=== PATIENT | female | born 1945 | race Caucasian/White ===

== ENCOUNTER → 2017-03-12 | Outpatient (CLI) | payer MEDICARE ==
[~2017-03-12] VITALS: Ht 170.2 cm; Wt 86.6 kg
[~2017-03-12] MED LIST: ASPI-110 PO; CHLORHEXIDINE GLUCONATE 2 % 1 PACK (2 CLOTHS) TOPICAL PRN; CLAR10CA3 PO; FLON0.053; INSULIN HUMAN REGULAR 1,000 UNITS/10 ML VIAL SQ PRN; LACTATED RINGER'S 1000 ML IV PRN; LISI10TA3 PO; LORA10TA7 PO; META48.53 PO; METF850T PO; METO5TAB PO; METOPROLOL TARTRATE 25 MG TAB PO PRN; ONABOTULINUMTOXINA INJ 100 UNITS/VIAL ONE; POVIDONE IODINE 5% (ANTISEPSIS KIT) 4 APPLICATIONS EACH NARE PRN; PROPOFOL 200 MG/20 ML AMP IV ONE; SIMV20TA PO; SODIUM CHLORID 0.9% 500 ML IV PRN; ZANT150T2 PO; ZANTTAB9 PO
[2017-03-12 08:51] VITALS: BP 124/66; PULSE 87; RESP 20; TEMP 98.7; O2SAT 99
--- NOTE | 2017-03-12 10:19 | EKG ---
Date Performed: 03/12/2017 Time Performed: 08:36:40 PTAGE: 71 years EKG: Sinus rhythm NORMAL ECG PREVIOUS TRACING : 06/28/2008 15.15 DOCTOR: Elvis Do Interpretating Date/Time 03/12/2017 10:17:10
[2017-03-12 11:19] VITALS: TEMP 97.8
[2017-03-12 11:35] VITALS: BP 106/56; PULSE 80; RESP 18; O2SAT 99
--- NOTE | 2017-03-12 12:47 | MR ---
cc: HARIKA VOSS M.D. DATE: 03/12/2017 PROCEDURE PERFORMED Esophagogastroduodenoscopy with esophageal dilatation over guidewire. INDICATION Dysphagia and retained Wadsworth device. PROCEDURE After informed consent was obtained, the patient was placed in the left side down position. She was sedated by the anesthesia service. After adequate sedation had been achieved the Pentex video gastroscope was inserted in the oropharynx and advanced down to the esophagus into the stomach, then into the descending duodenum. It was then slowly withdrawn examining the mucosal surfaces carefully. A retroflex examination was performed and the fundus and cardia demonstrating a hiatal hernia. The scope was then straightened and pulled through the distal esophagus. It was examined carefully and observed for a few seconds as it opened spontaneously. There was no evidence of achalasia. The scope was then withdrawn back to the proximal esophagus. It was then reinserted to the gastric antrum. A decision was made to perform esophageal dilatation. Guidewire was left in place in the gastric antrum, as the scope was slowly withdrawn over the guidewire, an 18 mm Savory dilator was passed down through the esophagus and down into the stomach. It was then removed along with the guidewire. A re-look examination was then performed, advancing down through the esophagus into the stomach, a retroflex exam demonstrated no complication. The scope was then withdrawn slowly through the esophagus and the procedure was terminated. She tolerated the procedure well and was returned to the recovery area in good condition. FINDINGS 1. The proximal esophagus was difficult to enter with the scope suggesting a possible proximal esophageal stricture. 2. The Wadsworth device had already passed and there was a small nipple-like lesion where the Wadsworth had been clipped. This was in the upper mid esophagus. 3. The distal esophagus appeared to open spontaneously suggesting that achalasia is not present. 4. Hiatal hernia was present of small to moderate size. 5. The stomach showed some minimal gastritis. 6. The duodenum was normal. 7. An 18 mm Savory dilator was passed down through the esophagus into the stomach and there was difficulty passing through the upper esophagus. 8. Re-look examination showed no complication but there did appear to be dilatation of the proximal esophagus just distal to the upper esophageal sphincter. IMPRESSION 1. Proximal esophageal stricture. 2. The Wadsworth device had to pass spontaneously. 3. The monometry planned for the esophagus was not performed because the patient did not want to delay her procedure. 4. No evidence of achalasia on endoscopy. RECOMMENDATION 1. The patient will continue her H2-blockers. 2. I have encouraged her to try to advance her diet and hopefully she will have a positive result from the dilatation. 3. If she continues to have trouble, she should followup with Dr. Martinez in the office. Charlie Voss MD [facility]/TLL /11:41 AM /12:28 PM
== END ==
LOC: HEND 07:52
PROVIDERS: ATTEND Hospitalist
DX: R13.10 Dysphagia, unspecified (principal); K44.9 Diaphragmatic hernia without obstruction or gangrene; K29.70 Gastritis, unspecified, without bleeding; K22.2 Esophageal obstruction; Z01.810 Encounter for preprocedural cardiovascular examination
CPT/HCPCS: 00740; 43248; 93005; C1769; J3010; J7120